=== PATIENT | male | born 1990 | race African-American/Black ===

== ENCOUNTER 2017-12-25 02:46 | Emergency (ER) | payer MEDICAID ==
[~2017-12-25] VITALS: Ht 172.7 cm; Wt 67.1 kg
[2017-12-25 02:53] VITALS: Ht 172.7 cm; Wt 67.1 kg
[2017-12-25 04:11] VITALS: BP 128/84
== END 2017-12-25 04:11 | disposition home or self-care (01) ==
LOC: ED 02:46
DX: R09.89 Other specified symptoms and signs involving the circulatory and respiratory systems (principal)